=== PATIENT | male | born 1945 | race Caucasian/White ===

== ENCOUNTER 2025-10-12 10:22 | Emergency (ER) | payer MEDICARE, SELFPAY ==
--- OUTSIDE RECORDS SUMMARY | 2025-10-12 10:25 | XMS_ITS | Encounter Summary ---
Author Organization [facility] Address [address] [place] [address] Phone Care Team Providers Care Business Support Specialist Name Role Phone Marc Brewer MD Primary Care Provider [phone] Lizzie Santos APRN, JAVA SOLUTIONS ARCHITECT Unavailable [phone] Reason for Visit * Reason Onset Date Comments Medication Refill Medication Management 12/10/2022 Encounter Details Date Type Department Care Team (Late st Contact Info) Description 12/10/2022 Refill [facility] #2 [place] [address] Marc Brewer MD [address] [address] Medication Refill; Medication Management Social History Tobacco Use Types Packs/Day Years Used Date Smoking Tobacco: Never Smokeless Tobacco: Never Alcohol Use Standard Drinks/Week Comments Yes 35 (1 standard drink = 0.6 oz pu re alcohol) daily beer intake 5-6 cans PHQ-2 Answer Date Recorded PHQ-2 Score 0 07/11/2019 Education Answer Date Recorded What is the highest level of school you have completed or the highest degree you have received? Bachelor's degree (e.g., BA, AB, BS) 07/28/2022 Sex and Gender Information Value Date Recorded Sex Assigned at Not on file Legal Sex Male 8:48 PM CDT Gender Identity Not on file Sexual Orientation Not on file COVID-19 Exposure Response Date Recorded In the last 10 days, have yo u been in contact with someone who was confirmed or suspected to have Coronavirus/COVID-19? No / Unsure 11/24/2022 12:46 PM DINING ROOM CASHIER documented as of this encounter Miscellaneous Notes * Telephone Encounter - Bernice Escamilla RN - 12/13/2022 2:46 PM CST Patient's PRD is calling. This patient was recently started on Meloxicam and folic acid. is asking if patient should be taking the baby aspirin daily with the Meloxicam and why patient has been started on folic acid. The label on the Meloxicam states to not take aspirin without the acknowledgement of doctor. Please Advise and call patient back with recommendations. NG ROOM CASHIER * Telephone Encounter - Marj Nuñez RN - 12/13/2022 7:21 AM CST Medication failed the protocol, provider to review and approve the medication order if appropriate. Requested Prescriptions Pending Prescriptions Disp Refills meloxicam (MOBIC) 7.5 MG Tablet [Pharmacy Med Name: MELOXICAM 7.5MG TABLET] 60 Tablet 0 Sig: TAKE ONE (1) TABLET BY MOUTH EVERY DAY WITH FOOD DIRECTED NSAIDs Protocol Failed - 12/10/2022 4:38 PM Failed - Active on medication list Failed - Normal serum creatinine in past 12 months CREATININE, BLOOD Date Value Ref Range Status 10/27/2022 0.44 (L) 0.80 - 1.30 mg/dL Final Failed - Not delegated, patient not between 1 and 65 years of age Passed - Visit with relevant provider in past 12 months or upcoming 90 days Recent Visits Date Type Provider Dept 11/24/22 Office Visit Marc Brewer MD [facility] 08/25/22 Office Visit Marc Brewer MD [facility] Showing recent visits within past 365 days and meeting all other requirements Future Appointments No visits were found meeting these conditions. Showing future appointments within next 90 days and meeting all other requirements Passed - No matching NSAID med order in past 45 days No matching medication orders between 10/29/2022 7:21 AM and 12/13/2022 7:21 AM Passed - AST less than 55 or ALT less than 90 in past 12 months SGOT (AST) Date Value Ref Range Status 10/24/2022 63 (H) <=40 U/L Final SGPT (ALT) Date Value Ref Range Status 10/24/2022 60 (H) <=41 U/L Final Passed - HGB greater than 10 or HCT greater than 30 in past 12 months HEMOGLOBIN (HGB) Date Value Ref Range Status 10/28/2022 13.5 13.0 - 16.5 g/dL Final HEMATOCRIT (HCT) Date Value Ref Range Status 10/28/2022 39.4 38.0 - 50.0 % Final lisinopril (PRINIVIL, ZESTRIL) 20 MG Tablet [Pharmacy Med Name: LISINOPRIL 20MG TABLET] 90 Tablet 1 Sig: TAKE ONE (1) TABLET BY MOUTH EACH MORNING BRITT Inhibitors Protocol Passed - 12/10/2022 4:38 PM Passed - Serum potassium on record in past 12 months POTASSIUM Date Value Ref Range Status 10/29/2022 3.8 3.5 - 5.1 mmol/L Final Passed - Blood pressure on record in past 12 months Clinician-entered: BP Readings from Last 3 Encounters: 11/24/22 104/52 11/18/22 116/82 10/29/22 104/56 Patient-entered: No data recorded Passed - Visit with relevant provider in past 12 months or upcoming 90 days Recent Visits Date Type Provider Dept 11/24/22 Office Visit Marc Brewer MD [facility] 08/25/22 Office Visit Marc Brewer MD [facility] Showing recent visits within past 365 days and meeting all other requirements Future Appointments No visits were found meeting these conditions. Showing future appointments within next 90 days and meeting all other requirements Passed - GFR on record in past 12 months GFR, EST. NONAFRICAN Date Value Ref Range Status 10/27/2022 >60 >=60 Final metoprolol Succinate (TOPROL-XL) 25 MG TABLET SR 24 HR [Pharmacy Med Name: METOPROLOL SUCCINATE ER 25MG ER TABLET ER 24HR] 90 Tablet 1 Sig: TAKE ONE (1) TABLET BY MOUTH EACH MORNING Beta-Blockers Protocol Passed - 12/10/2022 4:38 PM Passed - BP on record in the past year Clinician-entered: BP Readings from Last 3 Encounters: 11/24/22 104/52 11/18/22 116/82 10/29/22 104/56 Patient-entered: No data recorded Passed - Visit with relevant provider in past 12 months or upcoming 90 days Recent Visits Date Type Provider Dept 11/24/22 Office Visit Marc Brewer MD [facility] 08/25/22 Office Visit Marc Brewer MD [facility] Showing recent visits within past 365 days and meeting all other requirements Future Appointments No visits were found meeting these conditions. Showing future appointments within next 90 days and meeting all other requirements atorvastatin (LIPITOR) 40 MG Tablet [Pharmacy Med Name: ATORVASTATIN CALCIUM 40MG TABLET] 90 Tablet1 Sig: TAKE ONE (1) TABLET BY MOUTH EVERY NIGHT AT BEDTIME Hmg CoA Reductase Inhibitors Protocol Passed - 12/10/2022 4:38 PM Passed - Visit with relevant provider in past 12 months or upcoming 90 days Recent Visits Date Type Provider Dept 11/24/22 Office Visit Marc Brewer MD [facility] 08/25/22 Office Visit Marc Brewer MD [facility] Showing recent visits within past 365 days and meeting all other requirements Future Appointments No visits were found meeting these conditions. Showing future appointments within next 90 days and meeting all other requirements Passed - Lipid panel in past 12 months LDL Date Value Ref Range Status 10/25/2022 109 5 - 130 mg/dL Final HDL CHOLESTEROL Date Value Ref Range Status 10/25/2022 67.7 >40 mg/dL Final CHOLESTEROL Date Value Ref Range Status 10/25/2022 197 <=200 mg/dL Final TRIGLYCERIDES Date Value Ref Range Status 10/25/2022 103 <150 mg/dL Final VLDL Date Value Ref Range Status 10/25/2022 21 5 - 55 mg/dL Final CHOL/HDL RATIO Date Value Ref Range Status 10/25/2022 2.9 0.0 - 4.4 Final NON-HDL CHOLESTEROL Date Value Ref Range Status 10/25/2022 129.3 <130 mg/dL Final folic acid (FOLVITE) 1 MG Tablet [Pharmacy Med Name: FOLIC ACID 1MG TABLET] 90 Tablet 1 Sig: TAKE ONE (1) TABLET BY MOUTH EVERY DAY Folic Acid Protocol Passed - 12/10/2022 4:38 PM Passed - Visit with relevant provider in past 12 months or upcoming 90 days Recent Visits Date Type Provider Dept 11/24/22 Office Visit Marc Brewer MD [facility] 08/25/22 Office Visit Marc Brewer MD [facility] Showing recent visits within past 365 days and meeting all other requirements Future Appointments No visits were found meeting these conditions. Showing future appointments within next 90 days and meeting all other requirements amLODIPine (NORVASC) 5 MG Tablet [Pharmacy Med Name: AMLODIPINE BESYLATE 5MG TABLET] 90 Tablet 1 Sig: TAKE ONE (1) TABLET BY MOUTH EACH MORNING Calcium-Channel Blockers Protocol Passed - 12/10/2022 4:38 PM Passed - BP on record in the past year Clinician-entered: BP Readings from Last 3 Encounters: 11/24/22 104/52 11/18/22 116/82 10/29/22 104/56 Patient-entered: No data recorded Passed - Visit with relevant provider in past 12 months or upcoming 90 days Recent Visits Date Type Provider Dept 11/24/22 Office Visit Marc Brewer MD [facility] 08/25/22 Office Visit Marc Brewer MD [facility] [place] Showing recent visits within past 365 days and meeting all other requirements Future Appointments No visits were found meeting these conditions. Showing future appointments within next 90 days and meeting all other requirements Eliquis 5 MG Tablet [Pharmacy Med Name: ELIQUIS 5MG TABLET] 180 Tablet 1 Sig: TAKE ONE (1) TABLET BY MOUTH EVERY 12 HOURS Not Delegated - DOACs Protocol Failed - 12/10/2022 4:38 PM Failed - This refill cannot be delegated Passed - CBC on record in the past year WBC Date Value Ref Range Status 10/28/2022 5.63 4.00 - 12.00 10(3)/mcL Final WBC ESTERASE Date Value Ref Range Status 10/24/2022 Negative Negative Final RBC Date Value Ref Range Status 10/28/2022 4.23 (L) 4.40 - 5.80 10(6)/mcL Final HEMATOCRIT (HCT) Date Value Ref Range Status 10/28/2022 39.4 38.0 - 50.0 % Final HEMOGLOBIN (HGB) Date Value Ref Range Status 10/28/2022 13.5 13.0 - 16.5 g/dL Final MCV Date Value Ref Range Status 10/28/2022 93.1 82.0 - 96.0 fL Final MCH Date Value Ref Range Status 10/28/2022 31.9 26.0 - 32.0 pg Final MCHC Date Value Ref Range Status 10/28/2022 34.3 31.0 - 36.0 g/dL Final Passed - Visit with relevant provider in past 12 months or upcoming 90 days Recent Visits Date Type Provider Dept 11/24/22 Office Visit Marc Brewer MD [facility] 08/25/22 Office Visit Marc Brewer MD [facility] [place] Showing recent visits within past 365 days and meeting all other requirements Future Appointments No visits were found meeting these conditions. Showing future appointments within next 90 days and meeting all other requirements Passed - CMP on record in the past year SODIUM Date Value Ref Range Status 10/27/2022 134 (L) 136 - 144 mmol/L Final POTASSIUM Date Value Ref Range Status 10/29/2022 3.8 3.5 - 5.1 mmol/L Final CHLORIDE Date Value Ref Range Status 10/27/2022 98 (L) 100 - 110 mmol/L Final CO2, VENOUS Date Value Ref Range Status 10/27/2022 27 22 - 32 mmol/L Final ANION GAP Date Value Ref Range Status 10/27/2022 12.3 8.0 - 20.0 mmol/L Final GLUCOSE Date Value Ref Range Status 10/27/2022 89 70 - 99 mg/dL Final BUN Date Value Ref Range Status 10/27/2022 7 (L) 8 - 23 mg/dL Final CREATININE, BLOOD Date Value Ref Range Status 10/27/2022 0.44 (L) 0.80 - 1.30 mg/dL Final BUN/CREATININE RATIO Date Value Ref Range Status 10/27/2022 16 12 - 20 ratio Final TOTAL PROTEIN Date Value Ref Range Status 10/24/2022 6.7 6.0 - 8.3 g/dL Final ALBUMIN Date Value Ref Range Status 10/24/2022 3.9 3.5 - 5.2 g/dL Final Comment: The colormetric methods used for the determination of Albumin may lead to falsely elevated test results in patients suffering from renal failure or insufficiency due to interference with other proteins. A/G RATIO Date Value Ref Range Status 10/24/2022 1.4 1.0 - 2.0 Final CALCIUM Date Value Ref Range Status 10/27/2022 9.4 8.9 - 10.3 mg/dL Final T BILI Date Value Ref Range Status 10/24/2022 2.7 (H) <=1.2 mg/dL Final SGOT (AST) Date Value Ref Range Status 10/24/2022 63 (H) <=40 U/L Final SGPT (ALT) Date Value Ref Range Status 10/24/2022 60 (H) <=41 U/L Final ALKALINE PHOSPHATASE Date Value Ref Range Status 10/24/2022 72 40 - 130 U/L Final GFR, EST. NONAFRICAN Date Value Ref Range Status 10/27/2022 >60 >=60 Final GFR, EST. Date Value Ref Range Status 10/27/2022 >60 >=60 Final GFR, ESTIMATED Date Value Ref Range Status 10/27/2022 >60 >=60 Final Comment: Creatinine Clearance is the preferred criteria for selecting drug dose adjustments in renally impaired patients. The GFR is provided as additional pertinent clinical information. GFR is reported in mL/min/1.73 sq m. Calculation based on the Chronic Kidney Disease Epidemiology Collaboration (CKD- EPI) equation refitwithout adjustment for race. IS THE PATIENT REQUIRED TO BE FASTING? Date Value Ref Range Status 2022 No Final Passed - Creatinine and GFR on record in the past year CREATININE, BLOOD Date Value Ref Range Status 10/27/2022 0.44 (L) 0.80 - 1.30 mg/dL Final GFR, ESTIMATED Date Value Ref Range Status 10/27/2022 >60 >=60 Final Comment: Creatinine Clearance is the preferred criteria for selecting drug dose adjustments in renally impaired patients. The GFR is provided as additional pertinent clinical information. GFR is reported in mL/min/1.73 sq m. Calculation based on the Chronic Kidney Disease Epidemiology Collaboration (CKD- EPI) equation refitwithout adjustment for race. GFR, EST. NONAFRICAN Date Value Ref Range Status 10/27/2022 >60 >=60 Final NG ROOM CASHIER documented in this encounter Plan of Treatment Upcoming Encounters Date Type Department Care Team (Late st Contact Info) Description 12/13/2025 9:30 AM DINING ROOM CASHIER Lab [facility] [address] [facility] [address] [facility] Lab/Ancillary 12/19/2025 11:00 AM DINING ROOM CASHIER Office Visit [facility] [place] [address] [place] [address] Marc Brewer MD [address] [address] documented as of this encounter Visit Diagnoses Not on filedocumented in this encounter Additional Health Concerns Assessment Noted Time PHQ-9 Depression Total Score: 0 11/12/19 20 7:06 AM DINING ROOM CASHIER documented as of this encounter Care Teams Business Support Specialist Relationship Specialty Start Date End Date Marc Brewer MD [address] [address] PCP - General Family Medicine 08/23/16 Lizzie Santos, COMPENSATION ADMINISTRATOR, JAVA SOLUTIONS ARCHITECT [address] [place] [address] Nurse Practitioner Advanced Practice Nurse 11/18/22 documented as of this encounter
--- OUTSIDE RECORDS SUMMARY | 2025-10-12 10:25 | XMS_ITS | Clinical Summary ---
Author Organization [facility] Address [address] [address] Phone Care Team Providers Care Airplane Designer Name Role Phone Marc Brewer MD Primary Care Provider [phone] Lizzie Santos APRN, MECHANICAL ENGINEERING INTERN Unavailable [phone] Allergies No known active allergies Medications Cyanocobalamin (VITAMIN B 12 PO) Take by mouth. Activ e Eliquis 5 MG Tablet TAKE ONE (1) TABLET BY MOUTH EVERY 12 HOURS 180 Tablet 11 5 Active Cetirizine HCl (ZYRTEC PO) Take by mouth. Cuts in / Active fluticasone (FLONASE) 50 MCG/ACT Suspension 5 Active atorvastatin (LIPITOR) 20 MG Tablet TAKE 1 TABLET BY MOUTH DAILY. 90 Tablet 3 5 Active cetirizine (ZyrTEC) 10 MG Tablet TAKE ONE TABLET BY MOUTH EVERY DAY 30 Tablet 9 5 Active amLODIPine (NORVASC) 5 MG Tablet TAKE ONE (1) TABLET BY MOUTH EACH MORNING 90 Tablet 2 5 Active escitalopram (LEXAPRO) 20 MG Tablet TAKE ONE TABLET BY MOUTH EVERY DAY 90 Tablet 1 5 Active ARIPiprazole (ABILIFY) 5 MG Tablet Take 1 Tablet by mouth daily. 90 Tablet 2 5 Active mirtazapine (REMERON) 15 MG Tablet TAKE 1 TABLET BY MOUTH NIGHTLY. 90 Tablet 9 5 Active metoprolol Succinate (TOPROL-XL) 25 MG TABLET SR 24 HR TAKE ONE (1) TABLET BY MOUTH EACH MORNING 90 Tablet 1 5 Active methylPREDNISol one (MEDROL DOSPACK) 4 MG Tablet Therapy Pack Use as per instructions on package. 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 Alcohol abuse 10/24/2022 AC separation, left, initial encounter 2 Fall 10/24/2022 Screening for prostate cancer 08/31/2016 Atrial fibrillation 08/31/2016 Essential hypertension 02/20/2016 Hyperlipemia 02/20/2016 Resolved Problems Problem Noted Date Diagnosed Date Resolved Date Hyponatremia 10/24/2022 10/29/2022 Dehydration 10/24/2022 10/29/2022 Leukocytosis 10/24/2022 10/29/2022 Elevated LFTs 10/24/2022 10/29/2022 Encounters Date Type Department Care Team Description 09/09/2025 Refill [facility] [place] [address] Nyasia Mcmillan PAC Medication Refill 09/09/2025 Telephone [facility] [address] [place] [address] Marc Brewer MD Neck Pain 08/26/2025 Refill [facility] [place] [phone] Marc Brewer MD Medication Refill 07/23/2025 Refill [facility] [place] [address] Marc Brewer MD Medication Refill from Last 3 Months Immunizations Immunization Administration Dates Next Due Influenza Vaccine greater than 3 yrs 09/23/2018, 06/07/2013,09/22/2012 Influenza Vaccine less than 3 yrs 08/21/2024,05/2023 Influenza Vaccine, Quadrivalent, PF 07/28/2020,1 11/08/2016 Influenza, High-dose, Quadrivalent 08/24/2021 Influenza, Quadrivalent, Adjuvanted 07/26/2023,1 Influenza, Seasonal, Injectable, Undefined 08/13,09/23/2018,06/07/2013 Influenza, Trivalent, Adjuvanted, PF 08/23/2024 Influenza, high-dose, trivalent, PF 09/07/2019,1 PNEUMONIA ADULT IM [id number] 01/21/2011 PUR FLU HIGH DOSE (FLUZONE) 08/31/2016 Pneumococcal Vaccine - 13 Valent 08/16/2015 Pneumococcal Vaccine Adult - 23 Valent 3,01/21/2011 TD VACCINE 06/10/1998 Td, Adsorbed, Preservative F ree, Adult Use, Lf Unspecified 06/10/1998 Varicella Vaccine Live 08/16/2012,08/16/2012 Zoster Vaccine, live 08/02/2013 Family History Medical History Relation Name Comments No Known Problems Father Osteoarthritis Mother Tarah Relation Name Status Comments Father Mother Tarah Social History Tobacco Use Types Packs/Day Years Used Date Smoking Tobacco: Never Cigars Passive Smoke Exposure: Yes Smokeless Tobacco: Never Tobacco Cessation:Counseling Given: No Alcohol Use Standard Drinks/Week Comments Yes 20 (1 standard drink = 0.6 oz pu re alcohol) daily beer intake 5-6 cans [facility] Utilities Answer Date Recorded In the past 12 months has [employer], oil, or water [employer] threatened to shut off services in your home? No 12/18/2024 Social Connection and Isolation Panel Answer Date Recorded In a typical week, how many times do you talk on the phone with family, friends, or neighbors? More than three times a week 12/18/2024 How often do you get togethe r with friends or relatives? More than three times a week 12/18/2024 How often do you attend up health system or islam services? Never 12/18/2024 Do you belong to any clubs o r organizations such as religious groups, unions, fraternal or athletic groups, or school groups? No 12/18/2024 How often do you attend meet ings of the clubs or organizations you belong to? Never 12/18/2024 Are you , , di vorced, , never , or living with a partner? 12/18/2024 AUDIT-C Answer Date Recorded Q1: How often do you have a drink containing alcohol? 4 or more times a week 12/18/2024 Q2: How many drinks containi ng alcohol do you have on a typical day when you are drinking? 3 or 4 Q3: How often do you have si x or more drinks on one occasion? Never 12/18/2024 Overall Financial Resource Strain (CARDIA) Answe r Date Recorded How hard is it for you to pa y for the very basics like food, housing, medical care, and heating? Not hard at all 12/18/2024 PHQ-2 Answer Date Recorded Total Score - Questions 1-9 0 09/08 [facility] of Occupat ional Health - Occupational Stress Questionnaire Answer Date Recorded Do you feel stress - tense, restless, nervous, or anxious, or unable to sleep at night because your mind is troubled all the time - these days? Rather much 12/18/2024 Exercise Vital Sign Answer Date Recorde d On average, how many days pe r week do you engage in moderate to strenuous exercise (like a brisk walk)? 0 days 12/18/2024 On average, how many minutes do you engage in exercise at this level? 0 min 12/18/2024 Hunger Vital Sign Answer Date Recorded Within the past 12 months, y ou worried that your food would run out before you got the money to buy more. Never true 12/18/19 25 Within the past 12 months, t he food you bought just didn't last and you didn't have money to get more. Never true 12/18/2024 PRAPARE - Transportation Answer Date Re corded In the past 12 months, has l ack of transportation kept you from medical appointments or from getting medications? No 12/08 In the past 12 months, has l ack of transportation kept you from meetings, work, or from getting things needed for daily living? No 12/18/2024 Housing Stability Vital Sign Answer Carmelo e Recorded In the last 12 months, was t here a time when you were not able to pay the mortgage or rent on time? No 12/18/2024 Number of Times Moved in the Last Year Not on fi le 12/18/2024 At any time in the past 12 m [facility], were you homeless or living in a halfway (including now)? No 12/18/2024 Education Answer Date Recorded What is the highest level of school you have completed or the highest degree you have received? Bachelor's degree (e.g., BA, AB, BS) 07/28/2022 Sexually Active Control Partners Comments Not Currently Female Sex and Gender Information Value Date Recorded Sex Assigned at Not on file Legal Sex Male 8:48 PM CDT Gender Identity Not on file Sexual Orientation Not on file Last Filed Vital Signs Vital Sign Reading Time Taken Comments Blood Pressure 112/68 06/12/2025 12:35 PM CDT Pulse 51 06/12/2025 12:35 PM CDT Temperature 36.2 C (97.2 F) 06/12/2025 12:35 PM CDT Respiratory Rate 16 06/12/2025 12:35 PM CDT Oxygen Saturation 94% 06/12/2025 12:35 PM CDT Inhaled Oxygen Concentration - - Weight 70.8 kg (156 lb 1.6 oz) 06/12/2025 12:35 PM CDT Height 190.5 cm (6' 3) 06/12/2025 12:35 PM CDT Body Mass Index 19.51 06/12/2025 12:35 PM CDT Plan of Treatment Upcoming Encounters Date Type Department Care Team (Late st Contact Info) Description 12/13/2025 9:30 AM ASSOCIATE VICE PRESIDENT Lab [facility] [address] [place] [facility] [address] [place] [address] [facility] Lab/Ancillary 12/19/2025 11:00 AM ASSOCIATE VICE PRESIDENT Office Visit [facility] - [place] [facility] [place] [address] Marc Brewer MD [facility] [address] [place] [address] Health Maintenance Due Date Last Done Comments Hepatitis C Virus (HCV) Screening 1945 TdaP Immunization 1945 Zoster Immunization (2 of 3) 09/27/2013 08/02/2013 Medicare Initial AWV [id number] 11/07/2016 Respiratory Syncytial Virus (RSV) Immunization (Adult) (1 - 1-dose 75+ series) 2018 Influenza Immunization (#1) 07/08/202508/07, 08/21/2024, 08/13/2023, Additional history exists SARS-COV-2 Immunization ( season) 2025 10/26/2023, 09/23/2021, 02/16/2021, Additional history exists Varicella Immunization Discontinued 08/16/2012, 2011 Pneumococcal Immunization (50+ years) Completed 08/16/2015, 06/07/2013, 01/21/2011, Additional history exists Pneumococcal Immunization Combined Discontinued 08/16/2015, 06/07/2013, 01/21/2011, Additional history exists Hepatitis B Immunization Aged Out No longer eligible based on patient's age to complete this topic Human Papillomavirus (HPV) Immunization Aged Out No longer eligible based on patient's age to complete this topic Meningococcal Immunization (ACWY) Aged Out No longer eligible based on patient's age to complete this topic Rotavirus Immunization Aged Out No lo nger eligible based on patient's age to complete this topic Insurance MEDICARE C [employer] Advance Directives * Full Code (Latest Code Status on File) Date Activated Date Inactivated Comments 10/24/2022 3:44 PM 10/29/2022 7:40 PM CPR-Full T reatment: FULL ARREST: Attempt Resuscitation/CPR wit intubation and mechanical ventilation. PRE-ARREST: Use entire range of life support measures to stabilize the patient. Care Teams Airplane Designer Relationship Specialty Start Date End Date Marc Brewer MD [address] [address] PCP - General Family Medicine 08/23/16 Lizzie Santos APRN, MECHANICAL ENGINEERING INTERN [address] [place] [address] Nurse Practitioner Advanced Practice Nurse 11/18/22
--- OUTSIDE RECORDS SUMMARY | 2025-10-12 10:25 | XMS_ITS | Encounter Summary ---
Author Organization [facility] Address [address] [place] [address] Phone Care Team Providers Care Staffing Branch Manager Name Role Phone Marc Brewer MD Primary Care Provider [phone] Lizzie Santos APRN, DATABASE SECURITY EXPERT Unavailable [phone] Reason for Visit * Reason Comments Medication Refill Encounter Details Date Type Department Care Team (Late st Contact Info) Description 11/27/2024 [facility]ill [facility] #2 [place] [address] Marc Brewer MD #[address] [address] Medication Refill Social History Tobacco Use Types Packs/Day Years Used Date Smoking Tobacco: Never Smokeless Tobacco: Never Alcohol Use Standard Drinks/Week Comments Yes 35 (1 standard drink = 0.6 oz pu re alcohol) daily beer intake 5-6 cans [facility] Utilities Answer Date Recorded In the past 12 months has [employer], gas, oil, or water company threatened to shut off services in your home? No 10/23/2024 Social Connection and Isolation Panel Answer Date Recorded In a typical week, how many times do you talk on the phone with family, friends, or neighbors? More than three times a week 10/23/2024 How often do you get togethe r with friends or relatives? More than three times a week 10/23/2024 How often do you attend chur ch or orthodox services? Never 10/23/2024 Do you belong to any clubs o r organizations such as oriental orthodox groups, unions, fraternal or athletic groups, or school groups? No 10/23/2024 How often do you attend meet ings of the clubs or organizations you belong to? Never 10/23/2024 Are you , , di vorced, , never , or living with a partner? 10/23/2024 AUDIT-C Answer Date Recorded Q1: How often do you have a drink containing alcohol? 4 or more times a week 10/23/2024 Q2: How many drinks containi ng alcohol do you have on a typical day when you are drinking? 3 or 4 Q3: How often do you have si x or more drinks on one occasion? Never 10/23/2024 Overall Financial Resource Strain (CARDIA) Answe r Date Recorded How hard is it for you to pa y for the very basics like food, housing, medical care, and heating? Not hard at all 10/23/2024 PHQ-2 Answer Date Recorded Total Score - Questions 1-9 0 09/08 [facility] - Occupational Stress Questionnaire Answer Date Recorded Do you feel stress - tense, restless, nervous, or anxious, or unable to sleep at night because your mind is troubled all the time - these days? Only a little 10/23/2024 Exercise Vital Sign Answer Date Recorde d On average, how many days pe r week do you engage in moderate to strenuous exercise (like a brisk walk)? 0 days 10/23/2024 On average, how many minutes do you engage in exercise at this level? 0 min 10/23/2024 Hunger Vital Sign Answer Date Recorded Within the past 12 months, y ou worried that your food would run out before you got the money to buy more. Never true 10/23/20 24 Within the past 12 months, t he food you bought just didn't last and you didn't have money to get more. Never true 10/23/2024 PRAPARE - Transportation Answer Date Re corded In the past 12 months, has l ack of transportation kept you from medical appointments or from getting medications? No 10/07 In the past 12 months, has l ack of transportation kept you from meetings, work, or from getting things needed for daily living? No 10/23/2024 Housing Stability Vital Sign Answer Carmelo e Recorded In the last 12 months, was t here a time when you were not able to pay the mortgage or rent on time? No 10/23/2024 Number of Times Moved in the Last Year Not on fi le 10/23/2024 At any time in the past 12 m [facility], were you homeless or living in a alf (including now)? No 10/23/2024 Education Answer Date Recorded What is the highest level of school you have completed or the highest degree you have received? Bachelor's degree (e.g., BA, AB, BS) 07/28/2022 Sex and Gender Information Value Date Recorded Sex Assigned at Not on file Legal Sex Male 8:48 PM CDT Gender Identity Not on file Sexual Orientation Not on file documented as of this encounter Miscellaneous Notes * Telephone Encounter - Marj Nuñez RN - 11/27/2024 3:20 PM CST Images from the original note were not included. Metoprolol Succinate Dispensed Days Supply Quantity Provider Pharmacy METOPROL SUC 25MG ER TAB 11/27/2024 90 90 Tablet Marc Brewer MD [id number] ... METOPROL SUC 25MG ER TAB 09/03/2024 90 90 Tablet Marc Brewer MD [id number] ... MAKING MACHINE OPERATOR documented in this encounter Plan of Treatment Upcoming Encounters Date Type Department Care Team (Late st Contact Info) Description 12/13/2025 9:30 AM SET MAKING MACHINE OPERATOR Lab [facility] [address] [facility] [address] [place] [address] [facility] Lab/Ancillary 12/19/2025 11:00 AM SET MAKING MACHINE OPERATOR Office Visit [facility] - [facility] Medicine - [place] #2 [facility] [place] [address] Marc Brewer MD #[address] [address] documented as of this encounter Visit Diagnoses Not on filedocumented in this encounter Additional Health Concerns Assessment Noted Time PHQ-9 Depression Total Score: 0 10/04/20 23 11:34 AM SET MAKING MACHINE OPERATOR documented as of this encounter Care Teams Staffing Branch Manager Relationship Specialty Start Date End Date Marc Brewer MD #[address] [address] PCP - General Family Medicine 08/23/16 Lizzie Santos APRN, DATABASE SECURITY EXPERT #[address] [place] [address] Nurse Practitioner Advanced Practice Nurse 11/18/22 documented as of this encounter
--- OUTSIDE RECORDS SUMMARY | 2025-10-12 10:25 | XMS_ITS | Encounter Summary ---
Author Organization [facility] Address [address] [place] [address] Phone Care Team Providers Care Supervisor Wire Rope Fabrication Name Role Phone Marc Brewer MD Primary Care Provider [phone] Lizzie Santos APRN, BOOK REPAIRER Unavailable [phone] Reason for Visit * Reason Comments Medication Refill Encounter Details Date Type Department Care Team (Late st Contact Info) Description 05/24/2023 Refill [facility] #2 [place] [address] Marc Brewer MD #[address] [address] Medication Refill Social History Tobacco Use Types [...] suspected to have Coronavirus/COVID-19? No / Unsure 04/25/2023 10:37 AM CDT documented as of this encounter Miscellaneous Notes * Telephone Encounter - Tam Michelle L., RN - 05/25/2023 10:57 AM CDT Collaborating script Per nursing clinical judgement, provider to review and approve the medication(s) order(s) if appropriate. Requested Prescriptions Pending Prescriptions Disp Refills atorvastatin (LIPITOR) 40 MG Tablet [Pharmacy Med Name: ATORVASTATIN CALCIUM 40MG TABLET] 90 Tablet1 Sig: TAKE ONE (1) TABLET BY MOUTH EVERY NIGHT AT BEDTIME Hmg CoA Reductase Inhibitors Protocol Passed - 05/24/2023 10:05 AM Passed - Visit with relevant provider in past 12 months or upcoming 90 days Recent Visits Date Type Provider Dept 04/25/23 Office Visit Marc Brewer MD [facility] 11/24/22 Office Visit Marc Brewer MD [facility] 08/25/22 Office Visit Marc Brewer MD [facility] Showing recent visits within past 365 days and meeting all other requirements Future Appointments No visits were found meeting these conditions. Showing future appointments within next 90 days and meeting all other requirements Passed - Lipid panel in past 12 months LDL Date Value Ref Range Status 04/18/2023 71 5 - 130 mg/dL Final HDL CHOLESTEROL Date Value Ref Range Status 04/18/2023 86.5 >40 mg/dL Final CHOLESTEROL Date Value Ref Range Status 04/18/2023 170 <=200 mg/dL Final TRIGLYCERIDES Date Value Ref Range Status 04/18/2023 62 <150 mg/dL Final VLDL Date Value Ref Range Status 04/18/2023 12 5 - 55 mg/dL Final CHOL/HDL RATIO Date Value Ref Range Status 04/18/2023 2.0 0.0 - 4.4 Final NON-HDL CHOLESTEROL Date Value Ref Range Status 04/18/2023 83.5 <130 mg/dL Final Passed - CMP in past 12 months SODIUM Date Value Ref Range Status 04/18/2023 139 136 - 144 mmol/L Final POTASSIUM Date Value Ref Range Status 04/18/2023 4.1 3.5 - 5.1 mmol/L Final CHLORIDE Date Value Ref Range Status 04/18/2023 101 100 - 110 mmol/L Final CO2, VENOUS Date Value Ref Range Status 04/18/2023 27 22 - 32 mmol/L Final ANION GAP Date Value Ref Range Status 04/18/2023 15.1 8.0 - 20.0 mmol/L Final GLUCOSE Date Value Ref Range Status 04/18/2023 91 70 - 99 mg/dL Final BUN Date Value Ref Range Status 04/18/2023 13 8 - 23 mg/dL Final CREATININE, BLOOD Date Value Ref Range Status 04/18/2023 0.74 (L) 0.80 - 1.30 mg/dL Final BUN/CREATININE RATIO Date Value Ref Range Status 04/18/2023 18 12 - 20 ratio Final TOTAL PROTEIN Date Value Ref Range Status 04/18/2023 6.7 6.0 - 8.3 g/dL Final ALBUMIN Date Value Ref Range Status 04/18/2023 4.3 3.5 - 5.2 g/dL Final Comment: The colormetric methods used for the determination of Albumin may lead to falsely elevated test results in patients suffering from renal failure or insufficiency due to interference with other proteins. A/G RATIO Date Value Ref Range Status 04/18/2023 1.8 1.0 - 2.0 Final CALCIUM Date Value Ref Range Status 04/18/2023 9.4 8.9 - 10.3 mg/dL Final T BILI Date Value Ref Range Status 04/18/2023 1.6 (H) <=1.2 mg/dL Final SGOT (AST) Date Value Ref Range Status 04/18/2023 20 <=40 U/L Final SGPT (ALT) Date Value Ref Range Status 04/18/2023 14 <=41 U/L Final ALKALINE PHOSPHATASE Date Value Ref Range Status 04/18/2023 67 40 - 130 U/L Final GFR, EST. NONAFRICAN Date Value Ref Range Status 04/18/2023 >60 >=60 Final GFR, EST. Date Value Ref Range Status 04/18/2023 >60 >=60 Final GFR, ESTIMATED Date Value Ref Range Status 04/18/2023 >60 >=60 Final Comment: Creatinine Clearance is the preferred criteria for selecting drug dose adjustments in renally impaired patients. The GFR is provided as additional pertinent clinical information. GFR is reported in mL/min/1.73 sq m. Calculation based on the Chronic Kidney Disease Epidemiology Collaboration (CKD- EPI) equation refitwithout adjustment for race. IS THE PATIENT REQUIRED TO BE FASTING? Date Value Ref Range Status 04/18/2023 No Final documented in this encounter Plan of Treatment Upcoming Encounters Date Type Department Care Team (Late st Contact Info) Description 12/13/2025 9:30 AM HUMAN SERVICES CASE MANAGER Lab [facility] #[address] [address] [facility] 12/19/2025 11:00 AM HUMAN SERVICES CASE MANAGER Office Visit [facility] - Family Medicine - [place] #[address] [place] [address] Marc Brewer MD #[address] [address] documented as of this encounter Visit Diagnoses Not on filedocumented in this encounter Additional Health Concerns Assessment Noted Time PHQ-9 Depression Total Score: 0 11/12/19 20 7:06 AM HUMAN SERVICES CASE MANAGER documented as of this encounter Care Teams Supervisor Wire Rope Fabrication Relationship Specialty Start Date End Date Marc Brewer MD [address] [address] PCP - General Family Medicine 08/23/16 Lizzie Santos APRN, BOOK REPAIRER #[address] [place] [address] Nurse Practitioner Advanced Practice Nurse 11/18/22 documented as of this encounter
--- OUTSIDE RECORDS SUMMARY | 2025-10-12 10:25 | XMS_ITS | Encounter Summary ---
Author Organization [facility] Address [address] [place] [address] Phone Care Team Providers Care Shift Leader Name Role Phone Marc Brewer MD Primary Care Provider [phone] Lizzie Santos RETOUCHER PHOTOENGRAVING, POWER GENERATION TECHNICIAN Unavailable [phone] Reason for Visit * Reason Onset Date Comments Advice Only 11/20/2024 Encounter Details Date Type Department Care Team (Late st Contact Info) Description 11/20/2024 Telephone [facility] [address] [place] [address] Marc Brewer MD #[address] [address] Advice Only Social History Tobacco Use Types Packs/Day Years Used Date Smoking Tobacco: Never Smokeless Tobacco: Never Alcohol Use Standard Drinks/Week Comments Yes 35 (1 standard drink = 0.6 oz pu re alcohol) daily beer intake 5-6 cans [facility] Utilities Answer Date Recorded In the past 12 months has [employer], gas, oil, or water company threatened to [...] often do you attend chur ch or samaritan services? Never 10/23/2024 Do you belong to [...] Total Score - Questions 1-9 0 09/08 [facility] Occupat ional Health - Occupational Stress [...] any time in the past 12 m [facility], were you homeless or living in a fpc (including now)? No 10/23/2024 Education Answer Date [...] on file documented as of this encounter Plan of Treatment Upcoming Encounters Date Type Department Care Team (Late st Contact Info) Description 12/13/2025 9:30 AM FISH ICER Lab [facility] #[address] [address] [facility] [place] [facility] Lab/Ancillary 12/19/2025 11:00 AM FISH ICER Office Visit [facility] - Family Medicine - [place] #2 [place] [address] Marc Brewer MD #[address] [address] documented as of this encounter Visit Diagnoses Not on filedocumented in this encounter Additional Health Concerns Assessment Noted Time PHQ-9 Depression Total Score: 0 10/04/20 23 11:34 AM FISH ICER documented as of this encounter Care Teams Shift Leader Relationship Specialty Start Date End Date Marc Brewer MD [address] [address] PCP - General Family Medicine 08/23/16 Lizzie Santos APRN, POWER GENERATION TECHNICIAN [address] [place] [address] Nurse Practitioner Advanced Practice Nurse 11/18/22 documented as of this encounter
--- OUTSIDE RECORDS SUMMARY | 2025-10-12 10:25 | XMS_ITS | Encounter Summary ---
Author Organization [facility] Address [address] [place] [address] Phone Care Team Providers Care Physician President Name Role Phone Marc Brewer MD Primary Care Provider [phone] Lizzie Santos APRN, HR CLERK Unavailable [phone] Reason for Visit * Reason Comments Medication Refill Encounter Details Date Type Department Care Team (Late st Contact Info) Description 10/29/2024 Refill [facility] - [facility] Medicine [facility] #2 [place] [address] Nyasia Mcmillan, [facility] #[address] [place] [address] Medication Refill Social History Tobacco Use Types Packs/Day Years Used Date Smoking Tobacco: Never Smokeless Tobacco: Never Alcohol Use Standard Drinks/Week Comments Yes 35 (1 standard drink = 0.6 oz pu re alcohol) daily beer intake 5-6 cans [facility] Utilities Answer Date Recorded In the past 12 months has [employer], gas, oil, or water [employer] threatened to shut off services in your [...] often do you attend chur ch or taoism services? Never 10/23/2024 Do you belong to any clubs o r organizations such as restoration groups, unions, fraternal or athletic groups, or [...] Total Score - Questions 1-9 0 09/08 [facility] - Occupational Stress Questionnaire Answer Date Recorded [...] any time in the past 12 m onths, were you homeless or living in a usp (including now)? No 10/23/2024 Education Answer Date [...] encounter Miscellaneous Notes * Telephone Encounter - Lisbet Navarrete RN - 10/29/2024 1:51 PM NATURAL RESOURCES FACULTY MEMBER The original prescription was discontinued on 10/24/2024 by Marc Brewer MD for the following reason: Error. Renewing this prescription may not be appropriate. 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
--- OUTSIDE RECORDS SUMMARY | 2025-10-12 10:25 | XMS_ITS | Encounter Summary ---
Author Organization [facility] Address [address] [place] [address] Phone Care Team Providers Care Learning Support Teacher Name Role Phone Marc Brewer MD Primary Care Provider [phone] Lizzie Santos APRN, CHUCKING AND BORING MACHINE OPERATOR Unavailable [phone] Reason for Visit * Reason Comments Medication Refill Encounter Details Date Type Department Care Team (Late st Contact Info) Description 03/17/2024 Refill [facility] - [facility] - [place] #[address] [place] [address] Kylah Lagunas, ELECTRONICS ENGINEERING PROFESSOR, [employer] #[address] [address] Medication Refill Social History Tobacco Use Types Packs/Day Years Used Date Smoking Tobacco: Never Smokeless Tobacco: Never Alcohol Use Standard Drinks/Week Comments Yes 35 (1 standard drink = 0.6 oz pu re alcohol) daily beer intake 5-6 cans PHQ-2 Answer Date Recorded Total Score - Questions 1-9 0 09/08 Education Answer Date Recorded What is the [...] Telephone Encounter - Marj Nuñez RN - 03/19/2024 9:45 AM CDT Images from the original note were not included. torvastatin Calcium Dispensed Days Supply Quantity Provider Pharmacy ATORVASTATIN 40MG TAB 03/17/2024 90 90 Tablet Kylah Lagunas APRN, [id number] ... ATORVASTATIN 40MG TAB 11/23/2023 90 90 Tablet Kylah Lagunas APRN, [id number] ... documented in this encounter Plan of Treatment Upcoming Encounters Date Type Department Care Team (Late st Contact Info) Description 12/13/2025 9:30 AM NEW PATIENT ESCORT Lab [facility] #[address] [address] [facility] 12/19/2025 11:00 AM NEW PATIENT ESCORT Office Visit [facility] - Family Medicine - [place] [address] [place] [address] Marc Brewer MD #[address] [address] documented as of this encounter Visit Diagnoses Not on filedocumented in this encounter Additional Health Concerns Assessment Noted Time PHQ-9 Depression Total Score: 0 10/04/20 23 11:34 AM NEW PATIENT ESCORT documented as of this encounter Care Teams Learning Support Teacher Relationship Specialty Start Date End Date Marc Brewer MD #[address] [address] PCP - General Family Medicine 08/23/16 Lizzie Santos APRN, CHUCKING AND BORING MACHINE OPERATOR #[address] [place] [address] Nurse Practitioner Advanced Practice Nurse 11/18/22 documented as of this encounter
--- OUTSIDE RECORDS SUMMARY | 2025-10-12 10:25 | XMS_ITS | Encounter Summary ---
Author Organization [facility] Address [address] [place] [address] Phone Care Team Providers Care Rake Operator Name Role Phone Marc Brewer MD Primary Care Provider [phone] Lizzie Santos APRN, COTTON INSPECTOR Unavailable [phone] Reason for Visit * Reason Comments Medication Refill Encounter Details Date Type Department Care Team (Late st Contact Info) Description 03/02/2024 Refill [facility] - [place] [address] [place] [address] Kylah Lagunas, DIET TECHNICIAN REGISTERED, DEAN OF INSTRUCTION [address] [address] Medication Refill Social History Tobacco [...] Miscellaneous Notes * Telephone Encounter - Marj Jackson RN - 03/02/2024 11:57 AM CDT Medication failed the protocol, provider to review and approve the medication order if appropriate. Requested Prescriptions Pending Prescriptions Disp Refills metoprolol Succinate (TOPROL-XL) 25 MG TABLET SR 24 HR [Pharmacy Med Name: METOPROLOL SUCCINATE ER 25MG ER TABLET ER 24HR] 90 Tablet 1 Sig: TAKE ONE (1) TABLET BY MOUTH EACH MORNING Beta-Blockers Protocol Passed - 03/02/2024 10:22 AM Passed - BP on record in the past year Clinician-entered: BP Readings from Last 3 Encounters: 10/25/23 126/74 10/04/23 140/60 08/22/23 152/80 Patient-entered: No data recorded Passed - Visit with relevant provider in past 12 months or upcoming 90 days Recent Visits Date Type Provider Dept 10/25/23 Office Visit Kylah Lagunas APRN, VANITA [facility] 10/04/23 Office Visit Kylah Lagunas APRN, VANITA [facility] 04/25/23 Office Visit Marc Brewer MD [facility] Showing recent visits within past 365 days and meeting all other requirements Future Appointments No visits were found meeting these conditions. Showing future appointments within next 90 days and meeting all other requirements lisinopril (PRINIVIL, ZESTRIL) 20 MG Tablet [Pharmacy Med Name: LISINOPRIL 20MG TABLET] 90 Tablet 1 Sig: TAKE ONE (1) TABLET BY MOUTH EACH MORNING BRITT Inhibitors Protocol Passed - 03/02/2024 10:22 AM Passed - Serum potassium on record in past 12 months POTASSIUM Date Value Ref Range Status 10/18/2023 4.4 3.5 - 5.1 mmol/L Final Passed - Blood pressure on record in past 12 months Clinician-entered: BP Readings from Last 3 Encounters: 10/25/23 126/74 10/04/23 140/60 08/22/23 152/80 Patient-entered: No data recorded Passed - Visit with relevant provider in past 12 months or upcoming 90 days Recent Visits Date Type Provider Dept 10/25/23 Office Visit Kylah Lagunas APRN, VANITA [facility] 10/04/23 Office Visit Kylah Lagunas APRN, VANITA [facility] 04/25/23 Office Visit Marc Brewer MD [facility] Showing recent visits within past 365 days and meeting all other requirements Future Appointments No visits were found meeting these conditions. Showing future appointments within next 90 days and meeting all other requirements Passed - GFR on record in past 12 months GFR, EST. NONAFRICAN Date Value Ref Range Status 10/18/2023 >60 >=60 Final apixaban (Eliquis) 5 MG Tablet [Pharmacy Med Name: ELIQUIS 5MG TABLET] 180 Tablet 1 Sig: TAKE ONE (1) TABLET BY MOUTH EVERY 12 HOURS Not Delegated - DOACs Protocol Failed - 03/02/2024 10:22 AM Failed - This refill cannot be delegated Failed - CBC on record in the past [...] days Recent Visits Date Type Provider Dept 10/25/23 Office Visit Kylah Lagunas APRN, VANITA [facility] 10/04/23 Office Visit Kylah Lagunas APRN, VANITA [facility] 06/19/23 Office Visit Marc Brewer MD [facility] Showing recent visits within past 365 days and meeting all other requirements Future Appointments No visits were found meeting these conditions. Showing future appointments within next 90 days and meeting all other requirements Passed - CMP on record in the past year SODIUM Date Value Ref Range Status 10/18/2023 140 136 - 145 mmol/L Final POTASSIUM Date Value Ref Range Status 10/18/2023 4.4 3.5 - 5.1 mmol/L Final CHLORIDE Date Value Ref Range Status 10/18/2023 105 98 - 107 mmol/L Final CO2, VENOUS Date Value Ref Range Status 10/18/2023 27 22 - 30 mmol/L Final ANION GAP Date Value Ref Range Status 10/18/2023 12.4 <18.0 mmol/L Final GLUCOSE Date Value Ref Range Status 10/18/2023 96 70 - 99 mg/dL Final BUN Date Value Ref Range Status 10/18/2023 11 8 - 26 mg/dL Final CREATININE, BLOOD Date Value Ref Range Status 10/18/2023 0.77 0.70 - 1.30 mg/dL Final BUN/CREATININE RATIO Date Value Ref Range Status 10/18/2023 14 12 - 20 ratio Final TOTAL PROTEIN Date Value Ref Range Status 10/18/2023 6.7 6.3 - 8.2 g/dL Final ALBUMIN Date Value Ref Range Status 10/18/2023 4.1 3.5 - 5.0 g/dL Final A/G RATIO Date Value Ref Range Status 10/18/2023 1.6 1.0 - 2.2 Final CALCIUM Date Value Ref Range Status 10/18/2023 9.3 8.7 - 10.5 mg/dL Final T BILI Date Value Ref Range Status 10/18/2023 2.1 (H) 0.2 - 1.2 mg/dL Final SGOT (AST) Date Value Ref Range Status 10/18/2023 20 5 - 34 U/L Final SGPT (ALT) Date Value Ref Range Status 10/18/2023 15 0 - 55 U/L Final ALKALINE PHOSPHATASE Date Value Ref Range Status 10/18/2023 54 40 - 150 U/L Final GFR, EST. NONAFRICAN Date Value Ref Range Status 10/18/2023 >60 >=60 Final GFR, EST. Date Value Ref Range Status 10/18/2023 >60 >=60 Final GFR, ESTIMATED Date Value Ref Range Status 10/18/2023 >60 >=60 Final Comment: Creatinine Clearance is the preferred criteria for selecting drug dose adjustments in renally impaired patients. The GFR is provided as additional pertinent clinical information. GFR is reported in mL/min/1.73 sq m. Calculation based on the Chronic Kidney Disease Epidemiology Collaboration (CKD- EPI) equation refitwithout adjustment for race. IS THE PATIENT REQUIRED TO BE FASTING? Date Value Ref Range Status 10/18/2023 No Final Passed - Creatinine and GFR on record in the past year CREATININE, BLOOD Date Value Ref Range Status 10/18/2023 0.77 0.70 - 1.30 mg/dL Final GFR, ESTIMATED Date Value Ref Range Status 10/18/2023 >60 >=60 Final Comment: Creatinine Clearance is the preferred criteria for selecting drug dose adjustments in renally impaired patients. The GFR is provided as additional pertinent clinical information. GFR is reported in mL/min/1.73 sq m. Calculation based on the Chronic Kidney Disease Epidemiology Collaboration (CKD- EPI) equation refitwithout adjustment for race. GFR, EST. NONAFRICAN Date Value Ref Range Status 10/18/2023 >60 >=60 Final documented in this encounter Plan of Treatment Upcoming Encounters Date Type Department Care Team (Late st Contact Info) Description 12/13/2025 9:30 AM PAYROLL ACCOUNTING CLERK Lab [facility] #[address] [address] [facility] [place] Lab/Ancillary 12/19/2025 11:00 AM PAYROLL ACCOUNTING CLERK Office Visit [facility] - [place] [address] [place] [address] Marc Brewer MD #[address] [address] documented as of this encounter Visit Diagnoses Not on filedocumented in this encounter Additional Health Concerns Assessment Noted Time PHQ-9 Depression Total Score: 0 10/04/20 23 11:34 AM PAYROLL ACCOUNTING CLERK documented as of this encounter Care Teams Rake Operator Relationship Specialty Start Date End Date Marc Brewer MD [address] [address] [address] PCP - General Family Medicine 08/23/16 Lizzie Santos APRN, COTTON INSPECTOR [address] [place] [address] Nurse Practitioner Advanced Practice Nurse 11/18/22 documented as of this encounter
--- OUTSIDE RECORDS SUMMARY | 2025-10-12 10:25 | XMS_ITS | Encounter Summary ---
Author Organization [facility] Address [address] [place] [address] Phone Care Team Providers Care Weight Clerk Name Role Phone Marc Brewer MD Primary Care Provider [phone] Lizzie Santos APRN, BIOLOGICAL CHEMIST Unavailable [phone] Reason for Visit * Reason Comments Medication Refill Encounter Details Date Type Department Care Team (Late st Contact Info) Description 04/29/2023 Refill [facility] [address] [place] [address] Marc Brewer MD [address] [address] Medication Refill Social History Tobacco Use Types [...] Telephone Encounter - Marj Nuñez RN - 04/29/2023 11:00 AM CDT Images from the original note were not included. Atorvastatin Calcium Dispensed Days Supply Quantity Provider Pharmacy ATORVASTATIN 40MG TAB 03/09/2023 90 90 Tablet Marc Brewer MD [id number] ... documented in this encounter Plan of Treatment Upcoming Encounters Date Type Department Care Team (Late st Contact Info) Description 12/13/2025 9:30 AM APPLICATIONS DEVELOPMENT ANALYST Lab [facility] #[address] [address] [facility] 12/19/2025 11:00 AM APPLICATIONS DEVELOPMENT ANALYST Office Visit [facility] - [facility] - [place] [address] [place] [address] Marc Brewer MD #[address] [address] documented as of this encounter Visit Diagnoses Not on filedocumented in this encounter Additional Health Concerns Assessment Noted Time PHQ-9 Depression Total Score: 0 11/12/19 20 7:06 AM APPLICATIONS DEVELOPMENT ANALYST documented as of this encounter Care Teams Weight Clerk Relationship Specialty Start Date End Date Marc Brewer MD #[address] [address] PCP - General Family Medicine 08/23/16 Lizzie Santos APRN, BIOLOGICAL CHEMIST [address] [place] [address] Nurse Practitioner Advanced Practice Nurse 11/18/22 documented as of this encounter
--- OUTSIDE RECORDS SUMMARY | 2025-10-12 10:25 | XMS_ITS | Encounter Summary ---
Author Organization [facility] Address [address] [place] [address] Phone Care Team Providers Care Resident Program Specialist Name Role Phone Marc Brewer MD Primary Care Provider Lizzie Santos APRN, SLAB TRIPPER Unavailable [phone] Reason for Visit * Reason Comments Medication Refill Encounter Details Date Type Department Care Team (Late st Contact Info) Description 05/27/2025 Refill [facility] - Family [facility] [address] [place] [address] Marc Brewer MD #[address] [address] Medication Refill Social History Tobacco Use Types Packs/Day Years Used Date Smoking Tobacco: Never Cigars Passive Smoke Exposure: Yes Smokeless Tobacco: Never Alcohol Use Standard Drinks/Week Comments Yes 20 (1 standard drink = 0.6 oz pu re alcohol) daily beer intake 5-6 cans [facility] Utilities Answer Date Recorded In the past 12 months has [employer], gas, oil, or water [employer] threatened to shut off services in your [...] week 12/18/2024 How often do you attend chur ch or shinto services? Never 12/18/2024 Do you belong to any clubs o r organizations such as zoroastrianism groups, unions, fraternal or athletic groups, or [...] Total Score - Questions 1-9 0 09/08 [facility] - Occupational Stress [...] any time in the past 12 m [facility], were you homeless or living in a penitentiary (including now)? No 12/18/2024 Education Answer Date [...] Telephone Encounter - Marj Nuñez RN - 05/28/2025 11:00 AM CDT Images from the original note were not included. Metoprolol Succinate Dispensed Days Supply Quantity Provider Pharmacy METOPROL SUC TAB 25MG ER 05/27/2025 90 90 Tablet Marc Brewer MD [id number] ... METOPROL SUC TAB 25MG ER 02/20/2025 90 90 Tablet Marc Brewre MD [id number] ... documented in this encounter Plan of Treatment Upcoming Encounters Date Type Department Care Team (Late st Contact Info) Description 12/13/2025 9:30 AM MOTORSPORTS TECHNICIAN Lab [facility] [place] [address] [facility] Lab/Ancillary 12/19/2025 11:00 AM MOTORSPORTS TECHNICIAN Office Visit [facility] - Family Medicine - [place] [address] [place] [address] Marc Brewer MD [address] [address] documented as of this encounter Visit Diagnoses Not on filedocumented in this encounter Additional Health Concerns Assessment Noted Time PHQ-9 Depression Total Score: 0 10/04/20 11:34 AM MOTORSPORTS TECHNICIAN documented as of this encounter Care Teams Resident Program Specialist Relationship Specialty Start Date End Date Marc Brewer MD [address] [address] [address] PCP - General Family Medicine 08/23/16 Lizzie Santos, FIELD SERVICE TECH, SLAB TRIPPER [address] [place] [address] Nurse Practitioner Advanced Practice Nurse 11/18/22 documented as of this encounter
--- OUTSIDE RECORDS SUMMARY | 2025-10-12 10:25 | XMS_ITS | Encounter Summary ---
Author Organization [facility] Address [address] [place] [address] Phone Care Team Providers Care Propagator Laborer Name Role Phone Marc Brewer MD Primary Care Provider Lizzie Santos APRN, BUILDINGS AND GROUNDS COORDINATOR Unavailable [phone] Reason for Visit * Reason Comments Medication Refill Encounter Details Date Type Department Care Team (Late st Contact Info) Description 10/26/2024 Refill [facility] - Family Medicine [facility] [address] [place] [address] Nyasia Mcmillan, [facility] [address] [place] [address] Medication Refill Social History Tobacco Use Types Packs/Day Years Used Date Smoking Tobacco: Never Smokeless Tobacco: Never Alcohol Use Standard Drinks/Week Comments Yes 35 (1 standard drink = 0.6 oz pu re alcohol) daily beer intake 5-6 cans [facility] Utilities Answer Date Recorded In the past 12 months has [employer]), gas, oil, or water [employer] threatened to shut off services in your [...] often do you attend chur ch or yazidism services? Never 10/23/2024 Do you belong to any clubs o r organizations such as voodoo groups, unions, fraternal or athletic groups, or [...] Total Score - Questions 1-9 0 09/08 [facility] - Occupational Stress Questionnaire Answer Date Recorded [...] any time in the past 12 m [facility], were you homeless or living in a senior care (including now)? No 10/23/2024 Education Answer Date [...] Telephone Encounter - Marj Nuñez RN - 10/26/2024 12:53 PM CST Images from the original note were not included. Escitalopram Oxalate Dispensed Days Supply Quantity Provider Pharmacy ESCITALOPRAM 20MG TAB 10/24/2024 90 90 Tablet Marc Brewer MD [facility]... 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
--- OUTSIDE RECORDS SUMMARY | 2025-10-12 10:25 | XMS_ITS | Encounter Summary ---
Author Organization [facility] Address [address] [place] [address] Phone Care Team Providers Care Vertical Contour Band Saw Operator Name Role Phone Marc Brewer MD Primary Care Provider [phone] Lizzie Santos APRN, TELESERVICES REPRESENTATIVE Unavailable [phone] Reason for Visit * Reason Comments Medication Refill Encounter Details Date Type Department Care Team (Late st Contact Info) Description 05/31/2023 Refill [facility] #[address] [place] [address] Marc Brewer MD #[address] [address] Medication Refill Social History Tobacco Use Types [...] encounter Miscellaneous Notes * Telephone Encounter - Halina Nuñezdaisy Jackson RN - 05/31/2023 1:14 PM CDT Medication failed the protocol, provider to review and approve the medication order if appropriate. Requested Prescriptions Pending Prescriptions Disp Refills Eliquis 5 MG Tablet [Pharmacy Med Name: ELIQUIS 5MG TABLET] 180 Tablet 2 Sig: TAKE ONE (1) TABLET BY MOUTH EVERY 12 HOURS Not Delegated - DOACs Protocol Failed - 05/31/2023 9:31 AM Failed - This refill cannot be [...] Dept 04/25/23 Office Visit Marc Brewer MD [facility] 11/24/22 Office Visit Marc Brewer MD [facility] 08/25/22 Office Visit Marc Brewer MD [facility] Showing recent visits within past 365 days and meeting all other requirements Future Appointments No visits were found meeting these conditions. Showing future appointments within next 90 days and meeting all other requirements Passed - CMP on record in the past year SODIUM Date Value Ref Range Status 04/18/2023 [...] Value Ref Range Status 04/18/2023 No Final Passed - Creatinine and GFR on record in the past year CREATININE, BLOOD Date Value Ref Range Status 04/18/2023 0.74 (L) 0.80 - 1.30 mg/dL Final GFR, [...] Ref Range Status 04/18/2023 >60 >=60 Final metoprolol Succinate (TOPROL-XL) 25 MG TABLET SR 24 HR [Pharmacy Med Name: METOPROLOL SUCCINATE ER 25MG ER TABLET ER 24HR] 90 Tablet 2 Sig: TAKE ONE (1) TABLET BY MOUTH EACH MORNING Beta-Blockers Protocol Passed - 05/31/2023 9:31 AM Passed - BP on record in the past year Clinician-entered: BP Readings from Last 3 Encounters: 04/25/23 110/62 02/17/23 108/80 11/24/22 104/52 Patient-entered: No data recorded Passed - Visit with relevant provider in past 12 months or upcoming 90 days Recent Visits Date Type Provider Dept 04/25/23 Office Visit Marc Brewer MD [facility] 11/24/22 Office Visit Marc Brewer MD [facility] 08/25/22 Office Visit Marc Brewer MD [facility] Showing recent visits within past 365 days and meeting all other requirements Future Appointments No visits were found meeting these conditions. Showing future appointments within next 90 days and meeting all other requirements lisinopril (PRINIVIL, ZESTRIL) 20 MG Tablet [Pharmacy Med Name: LISINOPRIL 20MG TABLET] 90 Tablet 2 Sig: TAKE ONE (1) TABLET BY MOUTH EACH MORNING BRITT Inhibitors Protocol Passed - 05/31/2023 9:31 AM Passed - Serum potassium on record in past 12 months POTASSIUM Date Value Ref Range Status 04/18/2023 4.1 3.5 - 5.1 mmol/L Final Passed - Blood pressure on record in past 12 months Clinician-entered: BP Readings from Last 3 Encounters: 04/25/23 110/62 02/17/23 108/80 11/24/22 104/52 Patient-entered: No data recorded Passed - Visit with relevant provider in past 12 months or upcoming 90 days Recent Visits Date Type Provider Dept 04/25/23 Office Visit Marc Brewer MD [facility] 11/24/22 Office Visit [facility] Ref Range Status 04/18/2023 >60 >=60 Final amLODIPine (NORVASC) 5 MG Tablet [Pharmacy Med Name: AMLODIPINE BESYLATE 5MG TABLET] 90 Tablet 2 Sig: TAKE ONE (1) TABLET BY MOUTH EACH MORNING Calcium-Channel Blockers Protocol Passed - 05/31/2023 9:31 AM Passed - BP on record in the past year Clinician-entered: BP Readings from Last 3 Encounters: 04/25/23 110/62 02/17/23 108/80 11/24/22 104/52 Patient-entered: No data recorded Passed - Visit with relevant provider in past 12 months or upcoming 90 days Recent Visits Date Type Provider Dept 04/25/23 Office Visit Marc Brewer MD [facility] 11/24/22 Office Visit Marc Brewer MD [facility] 08/25/22 Office Visit Marc Brewer MD [facility] Showing recent visits within past 365 days and meeting all other requirements Future Appointments No visits were found meeting these conditions. Showing future appointments within next 90 days and meeting all other requirements documented in this encounter Plan of Treatment Upcoming Encounters Date Type Department Care Team (Late st Contact Info) Description 12/13/2025 9:30 AM COMPUTER TERMINAL OPERATOR Lab [facility] [address] [address] [facility] Lab/Ancillary 12/19/2025 11:00 AM COMPUTER TERMINAL OPERATOR Office Visit [facility] - [facility] Medicine - [place] [address] [place] [address] Marc Brewer MD [address] [address] documented as of this encounter Visit Diagnoses Not on filedocumented in this encounter Additional Health Concerns Assessment Noted Time PHQ-9 Depression Total Score: 0 11/12/19 20 7:06 AM COMPUTER TERMINAL OPERATOR documented as of this encounter Care Teams Vertical Contour Band Saw Operator Relationship Specialty Start Date End Date Marc Brewer MD [address] [address] PCP - General Family Medicine 08/23/16 Lizzie Santos, MAIL PROCESSING ASSOCIATE, TELESERVICES REPRESENTATIVE [address] [place] [address] Nurse Practitioner Advanced Practice Nurse 11/18/22 documented as of this encounter
--- OUTSIDE RECORDS SUMMARY | 2025-10-12 10:25 | XMS_ITS | Clinical Summary ---
Author Organization [facility] Building [facility] Address [address] [place] [address] Care Team Providers Care Center Medical Director Name Role Phone Marc Brewer MD Primary Care Provider [phone] Allergies No known active allergies Medications amLODIPine (NORVASC) 5 mg tablet Take 1 tablet (5 mg total) by mouth daily 1 Active quinapriL (ACCUPRIL) 40 mg tablet Take 1 tablet (40 mg total) by mouth daily 1 Active apixaban (ELIQUIS) 5 mg tablet Take 1 tablet (5 mg total) by mouth 2 (two) times a day Active aspirin 81 mg enteric coated tablet Take 1 tablet (81 mg total) by mouth daily Active lidocaine-menth ol 4-1 % adhesive patch,medicated Apply topically Active lisinopriL (PRINIVIL,ZESTR IL) 20 mg tablet Take 1 tablet (20 mg total) by mouth daily Active atorvastatin (LIPITOR) 40 mg tablet Take 1 tablet (40 mg total) by mouth daily Active cyanocobalamin (Vitamin B-12) 1,000 mcg tabletIndicatio ns:Prevention of Vitamin B12 Deficiency Take 1 tablet (1,000 mcg total) by mouth daily Active escitalopram (LEXAPRO) 20 mg tablet Take 1 tablet (20 mg total) by mouth daily 4 Active metoprolol XL (TOPROL-XL) 25 mg extended release tablet Take 1 tablet (25 mg total) by mouth daily 5 Active mirtazapine (REMERON) 15 mg tablet Take 1 tablet (15 mg total) by mouth nightly 4 Active Active Problems Problem Noted Date Diagnosed Date TIA (transient ischemic attack) 05/23/2023 Permanent atrial fibrillation 11/22/2022 On continuous oral anticoagulation 11/22/2022 Benign hypertension 03/23/2014 Overview (02/10/2017): BENIGN HYPERTENSION Degeneration of intervertebral disc of cervical region 03/23/2014 Overview (02/10/2017): DJD (degenerative joint disease), cervical Multiple-type hyperlipidemia 03/23/2014 Overview (02/10/2017): MIXED HYPERLIPIDEMIA Immunizations Immunization Administration Dates Next Due Influenza, Split 09/22/2012 Pneumococcal Polysaccharide PPV23 01/21/2011 Td, adsorbed 06/10/1998 Medical History Medical History Date Comments Hx Other Medical Laminectomy Hx Other Medical tonsillectomy a nd adenoid revomal Hx Other Medical 12/04/2011 shoulder pain Hypertension Family History Medical History Relation Name Comments Other Father Alive and well; Other Mother Alive and well; Hypertension Other Other Sister 2 PE; Cause of De ath: PE Relation Name Status Comments Father Alive Mother Alive Other Sister 1 (Age 64) Sister 2 Social History Tobacco Use Types Packs/Day Years Used Date Smoking Tobacco: Never Smokeless Tobacco: Never Tobacco Cessation:Counseling Given: Not Answered Alcohol Use Standard Drinks/Week Comments Yes 0 (1 standard drink = 0.6 oz pur e alcohol) Sex and Gender Information Value Date Recorded Sex Assigned at Not on file Legal Sex Male 10:49 AM CADD INSTRUCTOR Gender Identity Not on file Sexual Orientation Not on file Last Filed Vital Signs Vital Sign Reading Time Taken Comments Blood Pressure 151/66 07/10/2025 12:13 PM CDT Pulse 47 07/10/2025 12:13 PM CDT Temperature - - Respiratory Rate 18 05/23/2023 12:34 PM CDT Oxygen Saturation - - Inhaled Oxygen Concentration - - Weight 70.8 kg (156 lb) 07/10/2025 12:13 PM CDT Height 188 cm (6' 2) 07/10/2025 12:13 PM CDT Body Mass Index 20.03 07/10/2025 12:13 PM CDT Plan of Treatment Health Maintenance Due Date Last Done Comments Depression Screening 1945 Fall Risk Assessment 1945 Hepatitis B Screening 1961 DTaP/Tdap/Td Vaccine (1 - Tdap) 06/11/1998 8 Well Visit 65+ 2008 Zoster Vaccine (2 of 3) 09/27/2013 08/02/2013 Covid-19 Vaccine (4 - 2024-2 6 season) 2025 09/23/2021, 02/16/2021, 01/19/2021 Influenza Vaccine (#1) 2025 4, 08/21/2024, 08/13/2023, Additional history exists Pneumococcal vaccine 65+ Completed 015, 06/07/2013, 01/21/2011 Insurance AET MEDICARE Care Teams Center Medical Director Relationship Specialty Start Date End Date Marc Brewer MD [address] [place] [address] PCP - General Family Medicine 11/19/21
--- OUTSIDE RECORDS SUMMARY | 2025-10-12 10:25 | XMS_ITS | Encounter Summary ---
Author Organization [facility] Address [address] [place] [address] Phone Care Team Providers Care Import Customer Service Manager Name Role Phone Marc Brewer MD Primary Care Provider [phone] Lizzie Santos APRN, [facility] Unavailable [phone] Reason for Visit * Reason Comments Medication Refill Encounter Details Date Type Department Care Team (Late st Contact Info) Description 11/12/2020 [facility]ill [facility] [address] [place] [address] Marc Brewer MD [address] [address] Medication Refill Social History Tobacco Use Types Packs/Day Years Used Date Smoking Tobacco: Never Smokeless Tobacco: Never Alcohol Use Standard Drinks/Week Comments Yes 0 (1 standard drink = 0.6 oz pur e alcohol) PHQ-2 Answer Date Recorded PHQ-2 Score 0 07/11/2019 Sex and Gender Information Value Date Recorded Sex Assigned at Not on file Legal Sex Male 8:48 PM CDT Gender Identity Not on file Sexual Orientation Not on file documented as of this encounter Miscellaneous Notes * Telephone Encounter - Marc Brewer MD - 11/12/2020 11:56 AM CST Prescription approved. Please call in ONNEL SECURITY SPECIALIST * Telephone Encounter - Marj Nuñez RN - 11/12/2020 11:47 AM CST Medication failed the protocol, provider to review and approve the medication order if appropriate. Requested Prescriptions Pending Prescriptions Disp Refills metoprolol tartrate (LOPRESSOR) 50 MG Tablet [Pharmacy Med Name: METOPROLOL TARTRATE 50MG TABLETS] 90 Tab 1 Sig: TAKE 1/2 TABLET BY MOUTH TWICE DAILY Cardiovascular: Beta Blockers Failed - 11/12/2020 8:42 AM Failed - Last BP in normal range BP Readings from Last 1 Encounters: 07/28/20 143/65 Passed - Valid encounter within last 12 months Past Office Visits Recent Outpatient Visits 3 months ago Hyperlipidemia, unspecified hyperlipidemia type [facility] Marc Washington MD 1 year ago Chronic pain of left knee [facility] Marc Washington MD 1 year ago Atrial fibrillation, unspecified type (HCC) [facility] Marc Washington MD 1 year ago Essential hypertension [facility] Marc Washington MD 2 years ago Atrial fibrillation, unspecified type (HCC) [facility] Marc Washington MD 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 Showing future appointments within next 90 days with a meds authorizing provider and meeting all other requirements ONNEL SECURITY SPECIALIST documented in this encounter Plan of Treatment Upcoming Encounters Date Type Department Care Team (Late st Contact Info) Description 12/13/2025 9:30 AM PERSONNEL SECURITY SPECIALIST Lab [facility] [address] [address] [facility] Lab/Ancillary 12/19/2025 11:00 AM PERSONNEL SECURITY SPECIALIST Office Visit [facility] - Family [facility] [address] [place] [address] Marc Brewer MD [address] [address] documented as of this encounter Visit Diagnoses Not on filedocumented in this encounter Additional Health Concerns Infection Onset Date Last Indicated Resolved Time COVID - 19 10/24/2022 10/24/2022 10/25/2022 8:53 AM PERSONNEL SECURITY SPECIALIST Respiratory Rule-Out 10/24/2022 10/24/2022 022 10:26 AM PERSONNEL SECURITY SPECIALIST Assessment Noted Time PHQ-9 Depression Total Score: 0 11/12/19 20 7:06 AM PERSONNEL SECURITY SPECIALIST documented as of this encounter Care Teams Import Customer Service Manager Relationship Specialty Start Date End Date Marc Brewer MD [address] [address] PCP - General Family Medicine 08/23/16 Lizzie Santos, HIGH SCHOOL LIBRARIAN, RN [facility] [address] [place] [address] Nurse Practitioner Advanced Practice Nurse 11/18/22 documented as of this encounter
--- OUTSIDE RECORDS SUMMARY | 2025-10-12 10:25 | XMS_ITS | Encounter Summary ---
Author Organization [facility] Address [address] [place] [address] Phone Care Team Providers Care Children'S Counselor Name Role Phone Marc Brewer MD Primary Care Provider [phone] Lizzie Santos APRN, HADOOP SOFTWARE ENGINEER Unavailable [phone] Reason for Visit * Reason Comments Medication Refill Encounter Details Date Type Department Care Team (Late st Contact Info) Description 11/27/2024 Refill [facility] - Family Medicine [facility] [address] [place] [address] Nyasia Mcmillan, [facility] [address] [place] [address] Medication Refill Social History Tobacco Use Types Packs/Day Years Used Date Smoking Tobacco: Never Smokeless Tobacco: Never Alcohol Use Standard Drinks/Week Comments Yes 35 (1 standard drink = 0.6 oz pu re alcohol) daily beer intake 5-[address] [facility] Utilities Answer Date Recorded In the past 12 months has [employer], gas, oil, or water [employer] threatened to shut off services in your [...] often do you attend chur ch or sabianism services? Never 10/23/2024 Do you belong to any clubs o r organizations such as rastafari groups, unions, fraternal or athletic groups, or [...] Total Score - Questions 1-9 0 09/08 [facility] - Occupational Stress Questionnaire Answer Date [...] any time in the past 12 m [facility], were you homeless or living in a care home (including now)? No 10/23/2024 Education Answer Date [...] Encounter - Marj Nuñez RN - 11/27/2024 3:22 PM CST Images from the original note were not included. Lisinopril Dispensed Days Supply Quantity Provider Pharmacy LISINOPRIL 20MG TAB 11/27/2024 90 90 Tablet Ny[facility] Mcmillan [id number] ... LISINOPRIL 20MG TAB 08/24/2024 90 90 Tablet Nyasia Mcmillan [id number] ... ENT SUPPORT SERVICES DIRECTOR documented in this encounter Plan of Treatment Upcoming Encounters Date Type Department Care Team (Late st Contact Info) Description 12/13/2025 9:30 AM STUDENT SUPPORT SERVICES DIRECTOR Lab [facility] [address] [facility] [place] [address] [facility] Lab/Ancillary 12/19/2025 11:00 AM STUDENT SUPPORT SERVICES DIRECTOR Office Visit [facility] - Family Medicine - [place] [address] [facility] [place] [address] Marc Brewer MD [address] [address] documented as of this encounter Visit Diagnoses Not on filedocumented in this encounter Additional Health Concerns Assessment Noted Time PHQ-9 Depression Total Score: 0 10/04/20 23 11:34 AM STUDENT SUPPORT SERVICES DIRECTOR documented as of this encounter Care Teams Children'S Counselor Relationship Specialty Start Date End Date Marc Brewer MD #[address] [address] PCP - General Family Medicine 08/23/16 Lizzie Santos, RAIL SIGNAL WORKER, HADOOP SOFTWARE ENGINEER [address] [place] [address] Nurse Practitioner Advanced Practice Nurse 11/18/22 documented as of this encounter
[2025-10-12 10:30] VITALS: BP 155/80; PULSE 90; RESP 22; TEMP 36.2; O2SAT 97
--- NOTE | 2025-10-12 11:03 | ED_ITS ---
HPI - General Adult General Chief complaint: Extremity Problem,Nontraumatic Stated complaint: Swelling In Legs Time Seen by Provider: 10/12/25 11:03 Source: patient Mode of arrival: ambulatory Limitations: no limitations History of Present Illness HPI narrative: 80-year-old male presents with swelling to bilateral lower extremities, worse to right leg with pain to right thigh. Right leg has been more difficult to lift due to pain and swelling. Swelling for approximately 1 month. Last saw event coordinator marketing and sales in August and did not have any swelling. states it was difficult to get patient to come to Urgent Care to be seen today. Patient states he told his to make appointment with event coordinator marketing and sales for leg swelling and she did not. No chest pain or shortness of breath. All systems reviewed and negative. Related Data Home Medications ?Medication ?Instructions ?Recorded ?Confirmed ?Last Taken ?Type aripiprazole 5 mg tablet mg 10/12/25 Unknown History escitalopram oxalate 20 mg tablet mg 10/12/25 Unknown History mirtazapine 15 mg tablet mg 10/12/25 Unknown History Allergies Allergy/AdvReac Type Severity Reaction Status Date / Time No Known Allergies Allergy Verified 10/12/25 10:39 [facility] Family History Family History Other Acute ischemic right MCA stroke Afib Alcohol abuse Hypertension Social History Social History Smoking status: Former smoker Tobacco type: cigarettes Second hand tobacco smoke exposure: Yes ( smokes) Comments At time of signature, agree with nursing past medical, surgical, social and family history. There is no relevant family history pertinent to the presenting complaint. Exam Narrative: GENERAL: This is a well-nourished, well-developed patient, in no apparent distress. HEAD: normocephalic, atraumatic. EYES: PERRL. Sclera clear/white. Vision is grossly intact. EARS: External ears normal NOSE: External nose normal NECK: Neck supple, non-tender without lymphadenopathy, masses or thyromegaly. CARDIOVASCULAR: Regular rate and rhythm without murmurs, gallops, or rubs. RESPIRATORY: Clear to auscultation. Breath sounds equal bilaterally. No wheezes, rales, or rhonchi. SKIN: warm, Dry, intact with no suspicious lesions or rash, good texture and turgor. NEURO: awake, alert, and oriented to person, place and time. There were no obvious focal neurologic abnormalities. EXTREMITIES: Hyper pigmentation to bilateral lower extremities, venous insufficiency dermatitis noted. 2+ pitting edema to left leg and 3+ pitting edema to right leg. Course Course Level of Care: Express Care Visit Vital Signs Vital signs: Vital Signs Temperature 36.2 C L 10/12/25 10:30 Pulse Rate 90 10/12/25 10:30 Respiratory Rate 22 H 10/12/25 10:30 Blood Pressure 155/80 H 10/12/25 10:30 Pulse Oximetry 97 10/12/25 10:30 Oxygen Delivery Room Air 10/12/25 10:30 Temperature 36.2 C L 10/12/25 10:30 Pulse Rate 90 10/12/25 10:30 Respiratory Rate 22 H 10/12/25 10:30 Blood Pressure 155/80 H 10/12/25 10:30 Pulse Oximetry 97 10/12/25 10:30 Oxygen Delivery Room Air 10/12/25 10:30 Reviewed MDM MDM Narrative Medical decision making narrative: recommend transfer to ER to rule out congestive heart failure, DVT. Patient and his refused transfer. Baby-sitting grandkids today. Differential Diagnosis Differential Diagnosis: DVT, venous insufficiency, congestive heart failure Discharge Plan Discharge Clinical Impression: Right leg swelling Patient Disposition: Left Against Medical Advice Condition: Stable Instructions: Deep Vein Thrombosis (ED) Additional Instructions: You refused transfer to the ER today to rule out a blood clot to right leg. Follow-up with your primary care physician or event coordinator marketing and sales at next available appointment. Patient Language: [place] Islander Prescriptions: No Action mirtazapine 15 mg tablet aripiprazole 5 mg tablet escitalopram oxalate 20 mg tablet atorvastatin 40 mg Tablet 40 mg PO HS Qty: 30 0RF lisinopril 20 mg Tablet 20 mg PO QAM Qty: 30 0RF amlodipine [Norvasc] 5 mg Tablet 5 mg PO QAM Qty: 30 0RF aspirin [Children's Aspirin] 81 mg Tablet,Chewable 81 mg PO DAILY@0800 Qty: 30 0RF folic acid 1 mg Tablet 1 mg PO DAILY Qty: 10 0RF metoprolol succinate [Toprol XL] 25 mg Tablet Extended Release 24 Hr 25 mg PO QAM Qty: 30 0RF Eliquis 5 mg Tablet 5 mg PO Q12HR Qty: 60 0RF Follow-up/Referrals: Osman,Marc Villavicencio MD [Primary Care Provider] Time of Disposition: 11:24
== END 2025-10-12 11:30 | disposition left against medical advice (07) ==
PROVIDERS: Emergency Provider Nurse Practitioner Family; PCP Internal Medicine
DX: R22.41 Localized swelling, mass and lump, right lower limb (principal); I10 Essential (primary) hypertension; E78.00 Pure hypercholesterolemia, unspecified; F32.A Depression, unspecified; Z86.73 Personal history of transient ischemic attack (TIA), and cerebral infarction without residual deficits; Z87.891 Personal history of nicotine dependence
CPT/HCPCS: 99212; G0463